=== PATIENT | male | born 1980 | race African-American/Black ===

== ENCOUNTER 2017-12-04 00:16 | Emergency (ER) | payer OTHER, MEDICAID | END 2017-12-04 02:32 | disposition home or self-care (01) | LOC: FTE 00:16 | DX: M25.561 Pain in right knee (principal); R21 Rash and other nonspecific skin eruption; F17.210 Nicotine dependence, cigarettes, uncomplicated | CPT/HCPCS: 73562; 99283-25 ==

== ENCOUNTER 2017-12-07 20:35 | Emergency (ER) | payer OTHER ==
[2017-12-07] MEDS: CEPHALEXIN 500 MG CAP PO (22:17)
[2017-12-07] MEDS: TRIMETHOPRIM/SULFAMETHOX (DS) TAB PO (22:17)
[2017-12-07] MEDS: NAPROXEN 500 MG TAB PO (22:25)
[2017-12-07] MEDS: MUPIROCIN 2% 22 GM OINT TOP (22:25)
== END 2017-12-08 00:07 | disposition home or self-care (01) ==
LOC: FTE 12-08 00:07
DX: S80.862A Insect bite (nonvenomous), left lower leg, initial encounter (principal); F17.210 Nicotine dependence, cigarettes, uncomplicated; W57.XXXA Bitten or stung by nonvenomous insect and other nonvenomous arthropods, initial encounter; Y92.9 Unspecified place or not applicable
CPT/HCPCS: 99283; Z7502

== ENCOUNTER 2018-04-26 08:30 | Emergency (ER) | payer SELFPAY, OTHER ==
[2018-04-26] MEDS: AZITHROMYCIN 250 MG TAB PO (09:32)
[2018-04-26] MEDS: CEFTRIAXONE 250 MG INJ IM (09:32)
[2018-04-26] MEDS: LIDOCAINE 1% (MPF) 5 ML VIAL INJ (09:32)
[2018-04-26 09:39] LABS: URINE BLOOD (Dip) POC Trace-intact (NEGATIVE); URINE GLUCOSE (Dip) POC Negative (NEGATIVE); URINE KETONES (Dip) POC Negative (NEGATIVE); URINE LEUKOCYTE EST (Dip) POC Trace (NEGATIVE); URINE NITRITE (Dip) POC Negative (NEGATIVE); URINE TOTAL PROTEIN POC 1+ (NEGATIVE)
== END 2018-04-26 10:46 | disposition home or self-care (01) ==
LOC: FTE 10:46
DX: R30.0 Dysuria (principal); F17.210 Nicotine dependence, cigarettes, uncomplicated
CPT/HCPCS: 81003; 87086; 87591; 96372; 99284-25